=== PATIENT | female | born 1975 | race Two or more races ===

== ENCOUNTER 2023-02-23 06:50 | Emergency (ER) | payer OTHER ==
[~2023-02-23] VITALS: Ht 167.6 cm; Wt 79.8 kg
[2023-02-23] MEDS ORDERED: PEPCID AC20 MG PO (12:34)
== END 2023-02-23 13:12 | disposition home or self-care (01) ==
LOC: ER 06:50
DX: K22.89 Other specified disease of esophagus (principal); Z88.4 Allergy status to anesthetic agent; Z88.0 Allergy status to penicillin; Z20.822 Contact with and (suspected) exposure to COVID-19